=== PATIENT | female | born 1960 | race Caucasian/White ===

== ENCOUNTER → 2016-07-07 | Outpatient (REF) | payer BC ==
[2016-07-09 00:06] LABS: Lyme Disease IgG/IgM Antibodie <0.91 ISR (0.00-0.90); Lyme Disease IgM Ab Quantitati <0.80 index (0.00-0.79)
== END ==
LOC: M LAB REF 12:11
PROVIDERS: ATTEND Nurse Practitioner Family
DX: G50.1 Atypical facial pain (principal)

== ENCOUNTER → 2017-06-21 | Outpatient (REF) | payer BC ==
[2017-06-23 08:30] LABS: LDL DIRECT 175 mg/dL (0-99)
== END ==
LOC: M LAB REF 16:46
DX: E78.00 Pure hypercholesterolemia, unspecified (principal)
CPT/HCPCS: 83721

== ENCOUNTER → 2018-02-21 | Outpatient (REF) | payer BC | LOC: M LAB REF 11:49 | PROVIDERS: ATTEND Nurse Practitioner Adult Health | DX: E03.9 Hypothyroidism, unspecified (principal) ==

== ENCOUNTER → 2018-04-23 | Outpatient (REF) | payer BC | LOC: M LAB REF 12:25 | PROVIDERS: ATTEND Nurse Practitioner Adult Health | DX: E03.9 Hypothyroidism, unspecified (principal) ==

== ENCOUNTER 2018-12-11 11:38 | Day surgery (SDC) | payer BC ==
[~2018-12-11] VITALS: Ht 154.9 cm; Wt 71.7 kg
[~2018-12-11 11:38] MED LIST: ALPR1TAB3 PO; LEVO112T2 PO; NS 1,000 ML IV SCH; SERT-138 PO
[2018-12-11] MEDS ORDERED: fentaNYL 100 MCG/2 ML INJECTION (J3010) As Ordered ONE (13:44)
[2018-12-11] MEDS ORDERED: PROPOFOL 500 MG/50 ML VIAL As Ordered ONE (14:08)
[2018-12-11] MEDS ORDERED: LIDOCAINE 2% INJ 100 MG/5 ML SDV (FOR ANES.) As Ordered ONE (14:08)
--- NOTE | 2018-12-11 14:25 | ROOR ---
Patient Name: Liat Lee Procedure Date: 12/11/2018 2:03 PM Date of : 1960 Age: 58 Room: [facility] Gender: Female Note Status: Finalized Procedure: Total Colonoscopy to Cecum Indications: Family history of colonic polyps in a first-degree relative, Rectal bleeding Providers: Gulshan Ch MD Referring MD: Bre Brown NP Requesting Provider: Medicines: Monitored Anesthesia Care Complications: No immediate complications. Procedure: Pre-Anesthesia Assessment: - The heart rate, respiratory rate, oxygen saturations, blood pressure, adequacy of pulmonary ventilation, and response to care were monitored throughout the procedure. The Colonoscope was introduced through the anus and advanced to the cecum, identified by appendiceal orifice and ileocecal valve. The colonoscopy was performed without difficulty. The patient tolerated the procedure well. The quality of the bowel preparation was excellent. Findings: The perianal and digital rectal examinations were normal. Non-bleeding internal hemorrhoids were found during retroflexion. The hemorrhoids were small and Grade I (internal hemorrhoids that do not prolapse). Scattered small-mouthed diverticula were found in the recto-sigmoid colon, sigmoid colon and descending colon. The exam was otherwise without abnormality on direct and retroflexion views. The exam was otherwise without abnormality on direct and retroflexion views. Impression: - Non-bleeding internal hemorrhoids. - Diverticulosis in the recto-sigmoid colon, in the sigmoid colon and in the descending colon. - The examination was otherwise normal on direct and retroflexion views. - No specimens collected. - The exam was otherwise normal to the cecum. Recommendation: - Patient has a contact number available for emergencies. The signs and symptoms of potential delayed complications were discussed with the patient. Return to normal activities tomorrow. Written discharge instructions were provided to the patient. - High fiber diet. - Discharge patient to home. - Continue present medications. - Repeat colonoscopy in 5 years for surveillance. - Return to referring physician. - The findings and recommendations were discussed with the patient's family. Gulshan Ch MD Gulshan Ch MD 12/11/2018 2:25:05 PM Electronically signed by Gulshan Ch MD Number of Addenda: 0 Note Initiated On: 12/11/2018 2:03 PM Estimated Blood Loss: Estimated blood loss: none.
[2018-12-11 15:00] VITALS: BP 100/58
[2018-12-11] MEDS ORDERED: PERCOCET 5MG/325MG TAB As Ordered ONE (15:11)
== END 2018-12-11 15:11 | disposition home or self-care (01) ==
LOC: M OPP 11:38
PROVIDERS: ATTEND Internal Medicine Gastroenterology
DX: K64.0 First degree hemorrhoids (principal); Z83.71 Family history of colonic polyps; K62.5 Hemorrhage of anus and rectum; K57.30 Diverticulosis of large intestine without perforation or abscess without bleeding; Z79.899 Other long term (current) drug therapy

== ENCOUNTER → 2019-01-28 | Outpatient (REF) | payer BC ==
[~2019-01-28] MED LIST changes: -NS 1,000 ML IV SCH
== END ==
LOC: M LAB REF 18:40
PROVIDERS: ATTEND Radiology Diagnostic Radiology
DX: D24.2 Benign neoplasm of left breast (principal)

== ENCOUNTER → 2019-03-31 | Outpatient (REF) | payer BC ==
[2019-04-03 00:14] LABS: Lyme Disease IgG/IgM Antibodie <0.91 ISR (0.00-0.90); Lyme Disease IgM Ab Quantitati <0.80 index (0.00-0.79)
== END ==
LOC: M LAB REF 12:24
PROVIDERS: ATTEND Nurse Practitioner Adult Health
DX: Z11.8 Encounter for screening for other infectious and parasitic diseases (principal); M25.50 Pain in unspecified joint

== ENCOUNTER → 2020-04-27 | Outpatient (REF) | payer BC | LOC: M LAB REF 12:02 | PROVIDERS: ATTEND Nurse Practitioner Adult Health | DX: E03.9 Hypothyroidism, unspecified (principal) ==

== ENCOUNTER → 2020-11-09 | Outpatient (REF) | payer BC ==
[2020-11-11 05:07] LABS: RUBEOLA IgG ANTIBODY 96.2 AU/mL (Immune >16.4)
== END ==
LOC: M LAB REF 16:02
PROVIDERS: ATTEND Nurse Practitioner Adult Health
DX: Z02.1 Encounter for pre-employment examination (principal)

== ENCOUNTER → 2021-05-10 | Outpatient (REF) | payer BC ==
[2021-05-11 12:11] LABS: THRYOGLOBULIN ANTIBODIES (ATA) < 1.0 IU/mL (0.0-0.9); THYROGLOBULIN QUANTITATIVE < 0.1 ng/mL (1.5-38.5)
== END ==
LOC: M LAB REF 12:33
PROVIDERS: ATTEND Nurse Practitioner Adult Health
DX: C73 Malignant neoplasm of thyroid gland (principal); E03.9 Hypothyroidism, unspecified

== ENCOUNTER → 2023-02-06 | Outpatient (REF) | payer BC | LOC: M SFHCWAGY 13:02 | PROVIDERS: ATTEND Nurse Practitioner Family | DX: Z12.4 Encounter for screening for malignant neoplasm of cervix (principal) ==

== ENCOUNTER → 2023-02-28 | Outpatient (REF) | payer BC, MEDICARE | LOC: M SFHCWAGY 15:22 | PROVIDERS: ATTEND Nurse Practitioner Family | DX: R23.9 Unspecified skin changes (principal); L57.0 Actinic keratosis; L90.5 Scar conditions and fibrosis of skin ==

== ENCOUNTER → 2023-06-13 | Outpatient (REF) | payer MEDICARE | LOC: M LAB REF 13:09 | PROVIDERS: ATTEND Nurse Practitioner Adult Health | DX: E03.9 Hypothyroidism, unspecified (principal) ==

== ENCOUNTER → 2023-12-20 | Outpatient (REF) | payer MEDICARE ==
[2023-12-20 18:42] LABS: IRON (FE) 93 UG/DL (50-170); PERCENT SATURATION 25.1 % (13.2-45.0); TOTAL IRON BINDING CAPACITY 371 UG/DL (250-425)
[2023-12-20 18:58] LABS: HEPATITIS B SURFACE ANTIGEN NEGATIVE (NEGATIVE)
[2023-12-20 19:18] LABS: HEPATITIS C VIRUS ABY INDEX 0.03 INDEX (<0.8)
[2023-12-20 19:19] LABS: HEPATITIS B CORE ANTIBODY IGM NEGATIVE (NEGATIVE)
== END ==
LOC: M LAB REF 17:34
PROVIDERS: ATTEND Nurse Practitioner Adult Health
DX: R74.01 Elevation of levels of liver transaminase levels (principal)

== ENCOUNTER → 2024-06-18 | Outpatient (REF) | payer MEDICARE ==
[2024-06-19 15:52] LABS: THRYOGLOBULIN ANTIBODIES (ATA) < 1 IU/mL (< or = 1); THYROGLOBULIN QUANTITATIVE < 0.1 ng/mL (2.8-40.9)
== END ==
LOC: M LAB REF 12:38
PROVIDERS: ATTEND Nurse Practitioner Adult Health
DX: C73 Malignant neoplasm of thyroid gland (principal)

== ENCOUNTER → 2024-09-11 | Outpatient (REF) | payer MEDICARE | LOC: M LAB REF 12:10 | PROVIDERS: ATTEND Nurse Practitioner Adult Health | DX: F41.9 Anxiety disorder, unspecified (principal); F51.01 Primary insomnia ==

== ENCOUNTER → 2024-09-16 | Outpatient (REF) | payer MEDICARE | LOC: M LAB REF 14:07 | PROVIDERS: ATTEND Nurse Practitioner Adult Health | DX: F41.9 Anxiety disorder, unspecified (principal); F51.01 Primary insomnia ==

== ENCOUNTER → 2024-09-23 | Outpatient (REF) | payer MEDICARE | LOC: M LAB REF 12:18 | PROVIDERS: ATTEND Nurse Practitioner Adult Health | DX: R74.01 Elevation of levels of liver transaminase levels (principal) ==

== ENCOUNTER → 2024-10-30 | Outpatient (CLI) | payer MEDICARE | LOC: M WHC 07:38 | PROVIDERS: ATTEND Nurse Practitioner Adult Health | DX: R74.01 Elevation of levels of liver transaminase levels (principal); N28.1 Cyst of kidney, acquired ==

== ENCOUNTER → 2024-12-04 | Outpatient (CLI) | payer MEDICARE ==
[~2024-12-04] MED LIST changes: +GADOXETATE DISODIUM 2.5 MMOL/10 ML VIAL ONE
== END ==
LOC: M PLAIMG 10:57
PROVIDERS: ATTEND Nurse Practitioner Adult Health
DX: K76.0 Fatty (change of) liver, not elsewhere classified (principal); R74.01 Elevation of levels of liver transaminase levels
CPT/HCPCS: 74183; A9581